=== PATIENT | female | born 1955 | race Caucasian/White ===

== ENCOUNTER 2016-04-17 05:41 | Emergency (ER) | payer BC ==
[2016-04-17 05:52] VITALS: BP 123/65
[2016-04-17] MEDS ORDERED: Ibuprofen TAB* 600 MG PO ONE (06:07)
[2016-04-17] MEDS ORDERED: Ibuprofen TAB* 600 MG ONE (06:08)
--- NOTE | 2016-04-17 06:59 | ED ---
Randi Martinez Rebecca, scribed for Marv Boss on 04/17/16 at 0611 . Lower Extremity - HPI Summary HPI Summary: Pt is a 60 y/o F who presents to ED c/o L foot pain. Pain began suddenly 1 week ago, has been constant since onset, worsening this morning. Pain is discrete to the L foot without radiation and is characterized as aching, currently ranked 8/ 10. Sx aggravated and alleviated by nothing, unchanged by application of ice. Has not taken anything for the pain. Denies any injury/trauma. Does not stand often for her occupation, but reports currently moving which requires a lot of movementand packing. - History of Current Complaint Chief Complaint: EDExtremityLower Stated Complaint: LEFT FOOT PAIN Time Seen by Provider: 04/17/16 06:03 Hx Obtained From: Patient Onset of Pain: Prior to Arrival Onset/Duration: Weeks - 1 week Severity Initially: Moderate Severity Currently: Severe Pain Intensity: 8 Pain Scale Used: 0-10 Numeric Timing: Constant Location: Is Discrete @ - L foot Character Of Pain: Aching Associated Signs And Symptoms: Positive: Negative Aggravating Factor(s): Nothing Alleviating Factor(s): Nothing - Allergies/Home Medications Allergies/Adverse Reactions: Allergies Allergy/AdvReac Type Severity Reaction Status Date / Time Codeine Allergy Severe tongue Verified 03/20/16 15:25 swelling PMH/Surg Hx/FS Hx/Imm Hx Endocrine/Hematology History: Denies: Hx Diabetes, Hx Thyroid Disease Cardiovascular History: Denies: Hx Hypertension, Hx Pacemaker/ICD Respiratory History: Denies: Hx Asthma, Hx Chronic Obstructive Pulmonary Disease (COPD) GI History: Denies: Hx Ulcer Sensory History: Denies: Hx Hearing Aid Psychiatric History: Denies: Hx Panic Disorder - Cancer History Hx Chemotherapy: No Hx Radiation Therapy: No - Surgical History Surgery Procedure, Year, and Place: cholecystectomy. LEFT oopherectomy. sinus Infectious Disease History: No Infectious Disease History: Denies: Hx Hepatitis, Hx Human Immunodeficiency Virus (HIV), Traveled Outside the [place] in Last 30 Days - Family History Known Family History: Negative: Hypertension, Diabetes - Social History Alcohol Use: Rare Substance Use Type: Reports: None Smoking Status (MU): Never Smoked Tobacco Review of Systems Positive: Other - Denies injury/trauma Positive: Arthralgia - L foot pain All Other Systems Reviewed And Are Negative: Yes Physical Exam Triage Information Reviewed: Yes Vital Signs On Initial Exam: Initial Vitals Temp Pulse Resp BP Pulse Ox 98.2 F 60 18 123/65 96 04/17/16 05:45 04/17/16 05:45 04/17/16 05:45 04/17/16 05:45 04/17/16 05:45 Vital Signs Reviewed: Yes Appearance: Positive: Well-Appearing, No Pain Distress Skin: Positive: Warm, Skin Color Reflects Adequate Perfusion, Dry Head/Face: Positive: Normal Head/Face Inspection Eyes: Positive: EOMI, DANK ENT: Positive: Normal ENT inspection Neck: Positive: Supple, Nontender Respiratory/Lung Sounds: Positive: Clear to Auscultation, Breath Sounds Present Cardiovascular: Positive: RRR, Pulses are Symmetrical in both Upper and Lower Extremities Abdomen Description: Positive: Nontender, Soft Bowel Sounds: Positive: Present Musculoskeletal: Positive: Strength/ROM Intact, Other - Tendon is over the lateral aspect of the dorsum of the foot. Negative: Interruption @ Neurological: Positive: Normal, Sensory/Motor Intact, Alert, Oriented to Person Place, Time Diagnostics - Vital Signs Vital Signs Temp Pulse Resp BP Pulse Ox 04/17/16 05:45 98.2 F 60 18 123/65 96 - Laboratory Lab Statement: Any lab studies that have been ordered have been reviewed, and results considered in the medical decision making process. - Radiology Foot XR Xray Interpretation: No Acute Changes Radiology Interpretation Completed By: ED Physician Lower Extremity Course/Dx - Course Assessment/Plan: Pt is a 60 y/o F who presents to ED with a CC of left foot pain. Denies any trauma/injury. Foot XR reveals no acute fx. She continues to have pain, but denies a cane or crutches at this time. Should be evaluated to r/ o possible stress fracture. Pt will be d/c to home with a followup with podiatry. - Diagnoses Provider Diagnoses: Foot pain, left Discharge - Discharge Plan Condition: Stable Disposition: HOME Patient Education Materials: Arthralgia (ED) Referrals: Michael Naranjo MD [Primary Care Provider] - Jose Bhardwaj DPM [Doctor of Podiatric Medicine] - 3 Days (Follow up with Dr. Bhardwaj, podiatry, within the next 3 days. ) The documentation as recorded by the scribRandi moore Rebecca accurately reflects the service I personally performed and the decisions made by me, Marv Boss.
--- NOTE | 2016-04-17 08:42 | RAD ---
INDICATION: Left foot injury. TECHNIQUE: 3 views of the left foot were obtained. FINDINGS: The bones are in normal alignment. No fracture is seen. Joint spaces appear maintained. IMPRESSION: NO EVIDENCE FOR FRACTURE.
== END 2016-04-17 06:59 | disposition home or self-care (01) ==
LOC: ED 05:41
DX: M79.672 Pain in left foot (principal); Z88.5 Allergy status to narcotic agent
CPT/HCPCS: 99282; A9270-GY

== ENCOUNTER 2016-12-18 07:12 | Emergency (ER) | payer BC ==
[2016-12-18 07:31] VITALS: BP 108/68
[2016-12-18] MEDS ORDERED: Albuterol 2.5 MG/3 ML NEB.SOL* (0.083%) INH ONE (07:41)
--- NOTE | 2016-12-18 07:41 | UC ---
Respiratory Complaint HPI - HPI Summary HPI Summary: FINISHED AMOXICILLIN FOR SINUS INFECTION ABOUT A WEEK AGO. SX NEVER FULLY RESOLVED. OVER PAST WEEK HAS HAD WORSENING COUGH, WHEEZE AND JONES. NO FEVER. - History of Current Complaint Chief Complaint: UCRespiratory Stated Complaint: COUGH WHEEZING CONGESTION Time Seen by Provider: 12/18/16 07:23 Hx Obtained From: Patient Onset/Duration: Gradual Onset, Lasting Days, Still Present Timing: Constant Severity Initially: Moderate Severity Currently: Moderate Pain Intensity: 0 Pain Scale Used: 0-10 Numeric Character: Cough: Nonproductive Aggravating Factors: Recumbent Position Alleviating Factors: Nothing Associated Signs And Symptoms: Positive: Dyspnea, Wheezing, URI, Sinus Discomfort. Negative: Fever, Chills, Pleuritic Chest Pain - Allergies/Home Medications Allergies/Adverse Reactions: Allergies Allergy/AdvReac Type Severity Reaction Status Date / Time Codeine Allergy Severe tongue Verified 03/20/16 15:25 swelling PMH/Surg Hx/FS Hx/Imm Hx Psychological History: Anxiety - Surgical History Surgical History: Yes Surgery Procedure, Year, and Place: cholecystectomy. LEFT oopherectomy, ana. sinus - Family History Known Family History: Negative: Hypertension, Diabetes - Social History Alcohol Use: Rare Substance Use Type: None Smoking Status (MU): Never Smoked Tobacco Review of Systems Constitutional: Negative Respiratory: Shortness Of Breath, Cough Cardiovascular: Negative Gastrointestinal: Negative All Other Systems Reviewed And Are Negative: Yes Physical Exam Triage Information Reviewed: Yes Appearance: Well-Appearing, No Pain Distress, Well-Nourished Vital Signs: Initial Vital Signs Temp 98.3 F 12/18/16 07:19 Pulse 80 12/18/16 07:19 Resp 18 12/18/16 07:19 BP 108/68 12/18/16 07:19 Pulse Ox 95 12/18/16 07:19 Vital Signs Reviewed: Yes Eyes: Positive: Conjunctiva Clear ENT: Positive: Hearing grossly normal, Pharynx normal, TMs normal Neck: Positive: Supple, Nontender, No Lymphadenopathy Respiratory: Positive: No respiratory distress, No accessory muscle use, Wheezing - DIFFUSE Cardiovascular Exam: Normal Abdomen Description: Positive: Soft Musculoskeletal: Positive: No Edema Neurological: Positive: Alert Psychological: Positive: Age Appropriate Behavior Skin: Negative: rashes UC Diagnostic Evaluation - Laboratory O2 Sat by Pulse Oximetry: 95 Re-Evaluation - Re-Evaluation First Eval Re-Evaluation Time: 08:05 - PT FEELS BETTER AFTER ALBUTEROL NEB. LUNGS SOUND MUCH CLEARER - MINIMAL WHEEZE IN BASES, COUGH IMPROVED. Change: Improved Respiratory Course/Dx - Differential Dx/Diagnosis Provider Diagnoses: ACUTE BRONCHITIS Discharge - Discharge Plan Condition: Stable Disposition: HOME Prescriptions: Albuterol 2.5MG/3ML (0.083%)* [Ventolin 2.5 MG/3 ML NEB.JORDY*] 2.5 mg INH Q4H PRN #1 box PRN Reason: Wheezing Albuterol HFA INHALER* [Ventolin HFA Inhaler*] 2 puff INH Q4H PRN #1 mdi PRN Reason: Shortness Of Breath Respiratory Therapy Supplies [Nebulizer Kit/Tubing/Mout] 1 kit .SEE ORDER . DIRECTED #1 kit Spacer/Aerosol-Holding Chamber [Aerochamber Plus] 1 mis XX Q4H PRN #1 unit PRN Reason: Shortness Of Breath predniSONE TAB* [Deltasone TAB*] 50 mg PO DAILY #5 tab Patient Education Materials: Acute Bronchitis (ED), Bronchospasm (ED) Referrals: Michael Naranjo MD [Primary Care Provider] - If Needed Additional Instructions: USE THE NEBULIZER MORNING AND NIGHT. INHALER IS MORE PORTABLE AND CAN BE TAKEN WITH YOU FOR USE IF NEEDED WHEN YOU ARE OUT AND ABOUT. PREDNISONE FOR 5 DAYS TO HELP CALM AIRWAY INFLAMMATION. SEEK FOLLOW-UP IF YOU ARE NOT IMPROVING EXPECTED WITH THIS TREATMENT.
== END 2016-12-18 08:27 | disposition home or self-care (01) ==
LOC: UCEAST 07:12
DX: J20.9 Acute bronchitis, unspecified (principal)
CPT/HCPCS: 99212; G0463

== ENCOUNTER 2017-02-26 00:07 | Emergency (ER) | payer BC ==
[2017-02-26] MEDS ORDERED: Al Hydrox/Mg Hydrox/Simet LIQ* 30 ML UDC PO ONE (00:37)
[2017-02-26] MEDS ORDERED: Pantoprazole IV* 40 MG IV ONE (00:37)
[2017-02-26] MEDS ORDERED: Lidocaine 2% VISCOUS* 15 ML UDC PO ONE (00:38)
[2017-02-26 01:09] LABS: Hematocrit 42 % (35-47); Hemoglobin 14.2 g/dl (12.0-16.0); Mean Corpuscular HGB Conc 34 g/dl (31-36); Mean Corpuscular Hemoglobin 28 pg (27-31); Mean Corpuscular Volume 83 fL (80-97); Mean Platelet Volume 7 um3 (7.4-10.4); Red Blood Count 5.03 10^6/ul (4.0-5.4); Red Cell Distribution Width 14 % (10.5-15)
[2017-02-26 01:25] LABS: Albumin 3.8 g/dL (3.2-5.2); BUN/Creatinine Ratio 23.8 (8-20); EGFR African American 71.7 (>60); EGFR Non-African American 55.7 (>60); Globulin 3.2 g/dL (2-4); Magnesium 1.8 mg/dL (1.9-2.7); Potassium 3.1 mmol/L (3.5-5.0); Total Bilirubin 0.8 mg/dL (0.2-1.0)
[2017-02-26] MEDS ORDERED: Potassium Chlor TAB* 20 MEQ TAB.ER PO ONE (02:07)
--- NOTE | 2017-02-26 02:22 | ED ---
Faustino Martinez Benjamin, scribed for Geoff Candelaria MD on 02/26/17 at 0037 . Back Pain - HPI Summary HPI Summary: 61yo female c/o back pain since yesterday night with multiple vomiting spells yesterday. Pt states tonight pt woke up at 1130pm with substernal chest pain, radiating to the back. Pt also reports pressure in neck and funny feelings in her right jaw. Pt gets chronic LE swelling and takes water pills. Pt recently took prednisone for sinus infection and bronchitis. Pt denies SOB,Palp or diaphoresis. 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 - Onset/Duration: Sudden Onset, Lasting Days - 1 day, Still Present Onset/Duration: Started Days Ago - 1 day, Still Present Back Pain Location: Is Discrete @ - back, Radiates To - left anterior chest Severity Initially: Moderate Severity Currently: Moderate Pain Intensity: 8 Pain Scale Used: 0-10 Numeric Aggravating Symptom(s): Nothing Alleviating Symptom(s): Heat Associated Signs And Symptoms: Negative: Abdominal Pain, Flank Pain - Allergies/Home Medications Allergies/Adverse Reactions: Allergies Allergy/AdvReac Type Severity Reaction Status Date / Time Codeine Allergy Severe tongue Verified 03/20/16 15:25 swelling PMH/Surg Hx/FS Hx/Imm Hx Endocrine/Hematology History: Denies: Hx Diabetes, Hx Thyroid Disease Cardiovascular History: Denies: Hx Hypertension, Hx Pacemaker/ICD Respiratory History: Denies: Hx Asthma, Hx Chronic Obstructive Pulmonary Disease (COPD) GI History: Denies: Hx Ulcer Sensory History: Denies: Hx Hearing Aid Psychiatric History: Denies: Hx Panic Disorder - Cancer History Hx Chemotherapy: No Hx Radiation Therapy: No - Surgical History Surgery Procedure, Year, and Place: cholecystectomy. LEFT oopherectomy, ana. sinus Infectious Disease History: No Infectious Disease History: Denies: Hx Hepatitis, Hx Human Immunodeficiency Virus (HIV), History Other Infectious Disease, Traveled Outside the [place] in Last 30 Days - Family History Known Family History: Negative: Hypertension, Diabetes - Social History Alcohol Use: Rare Substance Use Type: Reports: None Smoking Status (MU): Never Smoked Tobacco Review of Systems Constitutional: Negative Eyes: Negative ENT: Negative Positive: Chest Pain - left anterior chest Respiratory: Negative Gastrointestinal: Negative Genitourinary: Negative Positive: Myalgia - back pain, Edema - chronic bilateral LE Skin: Negative Neurological: Negative Psychological: Normal All Other Systems Reviewed And Are Negative: Yes Physical Exam - Summary Physical Exam Summary: VITAL SIGNS: Reviewed. GENERAL: Patient is a well-developed and nourished FEMALE who is lying comfortable in the stretcher. Patient is not in any acute respiratory distress. HEAD AND FACE: No signs of trauma. No ecchymosis, hematomas or skull depressions. No sinus tenderness. EYES: PERRLA, EOMI x 2, No injected conjunctiva, no nystagmus. EARS: Hearing grossly intact. Ear canals and tympanic membranes are within normal limits. MOUTH: Oropharynx within normal limits. NECK: Supple, trachea is midline, no adenopathy, no JVD, no carotid bruit, no c- spine tenderness, neck with full ROM. CHEST: Symmetric, no tenderness at palpation LUNGS: Clear to auscultation bilaterally. No wheezing or crackles. CVS: Regular rate and rhythm, S1 and S2 present, no murmurs or gallops appreciated. ABDOMEN: Soft, non-tender. No signs of distention. No rebound no guarding, and no masses palpated. Bowel sounds are normal. EXTREMITIES: FROM in all major joints, no edema, no cyanosis or clubbing. NEURO: Alert and oriented x 3. No acute neurological deficits. Speech is normal and follows commands. SKIN: Dry and warm PSYCH: Anxious Triage Information Reviewed: Yes Vital Signs On Initial Exam: Initial Vitals Temp Pulse Resp BP Pulse Ox 98.7 F 67 16 158/120 99 02/26/17 00:10 02/26/17 00:10 02/26/17 00:10 02/26/17 00:10 02/26/17 00:10 Vital Signs Reviewed: Yes Diagnostics - Vital Signs Vital Signs Temp Pulse Resp BP Pulse Ox 02/26/17 00:10 98.7 F 67 16 158/120 99 - Laboratory Lab Results: Lab Results 02/26/17 02/26/17 02/26/17 Range/Units 00:59 00:59 00:59 WBC 13.0 H (3.5-10.8) 10^3/ul RBC 5.03 (4.0-5.4) 10^6/ul Hgb 14.2 (12.0-16.0) g/dl Hct 42 (35-47) % MCV 83 (80-97) fL MCH 28 (27-31) pg MCHC 34 (31-36) g/dl RDW 14 (10.5-15) % Plt Count 351 (150-450) 10^3/ul MPV 7 L (7.4-10.4) um3 Neut % (Auto) 83.7 H (38-83) % Lymph % (Auto) 10.3 L (25-47) % [place] % (Auto) 4.0 (1-9) % Eos % (Auto) 1.6 (0-6) % Baso % (Auto) 0.4 (0-2) % Absolute Neuts (auto) 10.9 H (1.5-7.7) 10^3/ul Absolute Lymphs (auto) 1.3 (1.0-4.8) 10^3/ul Absolute Monos (auto) 0.5 (0-0.8) 10^3/ul Absolute Eos (auto) 0.2 (0-0.6) 10^3/ul Absolute Basos (auto) 0.1 (0-0.2) 10^3/ul Absolute Nucleated RBC 0 10^3/ul Nucleated RBC % 0 INR (Anticoag Therapy) (0.77-1.02) APTT (26.0-36.3) seconds Sodium 136 (133-145) mmol/L Potassium 3.1 L (3.5-5.0) mmol/L Chloride 100 L (101-111) mmol/L Carbon Dioxide 29 (22-32) mmol/L Anion Gap 7 (2-11) mmol/L BUN 24 (6-24) mg/dL Creatinine 1.01 H (0.51-0.95) mg/dL Est GFR ( Amer) 71.7 (>60) Est GFR (Non-Af Amer) 55.7 (>60) BUN/Creatinine Ratio 23.8 H (8-20) Glucose 118 H (70-100) mg/dL Calcium 9.0 (8.6-10.3) mg/dL Magnesium 1.8 L (1.9-2.7) mg/dL Total Bilirubin 0.80 (0.2-1.0) mg/dL AST 14 (13-39) U/L ALT 14 (7-52) U/L Alkaline Phosphatase 93 (34-104) U/L Troponin I 0.00 (<0.04) ng/mL B-Natriuretic Peptide 27 ( - 100) pg/mL Total Protein 7.0 (6.4-8.9) g/dL Albumin 3.8 (3.2-5.2) g/dL Globulin 3.2 (2-4) g/dL Albumin/Globulin Ratio 1.2 (1-3) Amylase 54 (29-103) U/L Lipase 15 (11.0-82.0) U/L 02/26/17 Range/Units 00:59 WBC (3.5-10.8) 10^3/ul RBC (4.0-5.4) 10^6/ul Hgb (12.0-16.0) g/dl Hct (35-47) % MCV (80-97) fL MCH (27-31) pg MCHC (31-36) g/dl RDW (10.5-15) % Plt Count (150-450) 10^3/ul MPV (7.4-10.4) um3 Neut % (Auto) (38-83) % Lymph % (Auto) (25-47) % [place] % (Auto) (1-9) % Eos % (Auto) (0-6) % Baso % (Auto) (0-2) % Absolute Neuts (auto) (1.5-7.7) 10^3/ul Absolute Lymphs (auto) (1.0-4.8) 10^3/ul Absolute Monos (auto) (0-0.8) 10^3/ul Absolute Eos (auto) (0-0.6) 10^3/ul Absolute Basos (auto) (0-0.2) 10^3/ul Absolute Nucleated RBC 10^3/ul Nucleated RBC % INR (Anticoag Therapy) 1.06 H (0.77-1.02) APTT 28.4 (26.0-36.3) seconds Sodium (133-145) mmol/L Potassium (3.5-5.0) mmol/L Chloride (101-111) mmol/L Carbon Dioxide (22-32) mmol/L Anion Gap (2-11) mmol/L BUN (6-24) mg/dL Creatinine (0.51-0.95) mg/dL Est GFR ( Amer) (>60) Est GFR (Non-Af Amer) (>60) BUN/Creatinine Ratio (8-20) Glucose (70-100) mg/dL Calcium (8.6-10.3) mg/dL Magnesium (1.9-2.7) mg/dL Total Bilirubin (0.2-1.0) mg/dL AST (13-39) U/L ALT (7-52) U/L Alkaline Phosphatase (34-104) U/L Troponin I (<0.04) ng/mL B-Natriuretic Peptide ( - 100) pg/mL Total Protein (6.4-8.9) g/dL Albumin (3.2-5.2) g/dL Globulin (2-4) g/dL Albumin/Globulin Ratio (1-3) Amylase (29-103) U/L Lipase (11.0-82.0) U/L Result Diagrams: 02/26/17 00:59 02/26/17 00:59 Lab Statement: Any lab studies that have been ordered have been reviewed, and results considered in the medical decision making process. - EKG 0021. Cardiac Rate: NL EKG Rhythm: Sinus Rhythm - 63bpm ST Segment: Normal Ectopy: None EKG Interpretation: Normal axis. Normal interval. No ischemic changes Back Pain Course/Dx - Course Course Of Treatment: Pt is now pain free. Pt responded well to GI cocktail. Pain most likely from a GI origin. Will discharge on PPI. Pt will f/u with her PCP. Pt advised to get a stress test done FELICITY to r/o cardiac origin. - Diagnoses Provider Diagnoses: GERD (gastroesophageal reflux disease), Atypical chest pain Discharge - Discharge Plan Condition: Stable Disposition: HOME Prescriptions: Esomeprazole Magnesium [Nexium] 40 mg PO DAILY #30 tab Referrals: Michael Naranjo MD [Primary Care Provider] - (1-2 days ) Additional Instructions: WE HIGHLY RECOMMEND GETTING A STRESS TEST DONE SOON POSSIBLE. RETURN TO EMERGENCY DEPARTMENT FOR ANY NEW OR WORSENING SYMPTOMS The documentation as recorded by the Faustino reis Benjamin accurately reflects the service I personally performed and the decisions made by , Geoff Candelaria MD.
[2017-02-26 03:07] VITALS: BP 120/56
--- NOTE | 2017-02-26 07:48 | RAD ---
HISTORY: Chest pain COMPARISONS: January 09, 2017 VIEWS: 1: frontal portable view of the chest at 12:45 AM FINDINGS: LINES AND TUBES: None. CARDIOMEDIASTINAL SILHOUETTE: The cardiomediastinal silhouette is normal for portable technique. PLEURA: The costophrenic angles are sharp. No pleural abnormalities are noted. LUNG PARENCHYMA: The lungs are clear. ABDOMEN: The upper abdomen is clear. There is no subphrenic gas. BONES AND SOFT TISSUES: No bone or soft tissue abnormalities are noted. IMPRESSION: NO ACTIVE CARDIOPULMONARY DISEASE.
== END 2017-02-26 03:07 | disposition home or self-care (01) ==
LOC: ED 00:07
DX: K21.9 Gastro-esophageal reflux disease without esophagitis (principal); R07.89 Other chest pain; Z88.5 Allergy status to narcotic agent
CPT/HCPCS: 36415; 71010; 80053; 82150; 83690; 83735; 83880; 84484; 85025; 85610; 85730; 93005; 96374; 99283; A9270-GY